=== PATIENT | male | born 1950 | race Caucasian/White ===

== ENCOUNTER → 2020-01-27 | Outpatient (CLI) | payer MEDICARE ==
--- NOTE | 2020-01-27 13:38 | KCIC ---
Examination: CT chest without contrast HISTORY: History of lung nodule COMPARISON: None available Technique: Axial CT images of chest were performed without contrast. Coronal and sagittal reformats are performed. Exposure: One or more of the following individualized dose reduction techniques were utilized for this examination: 1. Automated exposure control 2. Adjustment of the mA and/or kV according to patient size 3. Use of iterative reconstruction technique FINDINGS: The central airways are patent. Mild cardiomegaly. Coronary artery calcifications identified. No radiologically significant mediastinal lymphadenopathy identified. Groundglass nodules identified in the right upper lobe of the lung with the largest measuring 7.5 mm in the right upper lobe. Faint of ground glass infiltrates identified in the right upper lobe of the lung. 4 mm nodule identified in the right middle lobe of the lung. 3 mm nodule identified left lower lobe of the lung. Mild decreased attenuation noted in the liver probably hepatic steatosis. Cholecystectomy changes Mild degenerative changes thoracic spine. IMPRESSION: 1. Groundglass nodules the largest measuring 7.5 mm identified in the right upper lobe of the lung with infiltrates. Follow-up examination for for Society guidelines recommended in 3-6 months. 2. Smaller nodules scattered in the right and left lobes of the lung. 3. Mild hepatic steatosis Electronically signed by: Swapnil Mcmillan MD (01/27/2020 1:35 PM) [id number]
== END | disposition home or self-care (01) ==
LOC: KCIC CT 12:56
PROVIDERS: ATTEND Internal Medicine Pulmonary Disease
DX: R91.1 Solitary pulmonary nodule (principal); K76.0 Fatty (change of) liver, not elsewhere classified; I25.10 Atherosclerotic heart disease of native coronary artery without angina pectoris; I51.7 Cardiomegaly; Z90.49 Acquired absence of other specified parts of digestive tract
CPT/HCPCS: 71250

== ENCOUNTER → 2020-07-21 | Outpatient (CLI) | payer MEDICARE ==
--- NOTE | 2020-07-21 17:12 | KCIC ---
EXAM: CT Chest without IV contrast INDICATION: Reason: LUNG NODULE / Spl. Instructions: PREVIOUS CT CHEST 01/27/20 / History: TECHNIQUE: Multi-detector row CT images were acquired from the thoracic inlet through the upper abdo men without the use of IV contrast. Sagittal and coronal images were acquired from the transaxial deed a. All CT scans performed at this facility utilize dose optimization techniques as appropriate to the exam, including the following: Automated exposure control and adjustment of the mA and/or KV accordi ng to patient size (this includes techniques or standardized protocols for targeted exams where dose is indication/reason for exam). COMPARISON: CT chest without IV contrast of 01/27/2020 FINDINGS: The absence of IV contrast limits evaluation of soft tissue pathology. CARDIOVASCULAR: Unremarkable MEDIASTINUM & TARYN: No adenopathy or masses. LUNGS: Previously evident groundglass nodules in the right upper lobe have diminished in density but in the interval, additional groundglass opacities are present in the posterior right upper lobe and t o a lesser extent in the superior segment right lower lobe. PLEURAL SPACE: No pleural effusions or pneumothorax. OSSEOUS & SOFT TISSUE: Unremarkable ABDOMEN: Prior cholecystectomy. IMPRESSION: 6 month follow-up chest CT shows interval decrease in conspicuity and size of the previously noted gr oundglass nodules but new groundglass nodules in the posterior right upper lobe and superior segment right lower lobe in a pattern and distribution suggesting an inflammatory process. Recommend follow-u p with pulmonary medicine Electronically signed by: Zen Narayanan MD (07/21/2020 5:09 PM) [id number]
== END ==
LOC: KCIC CT 12:28
PROVIDERS: ATTEND Internal Medicine Pulmonary Disease
DX: R91.1 Solitary pulmonary nodule (principal); Z90.49 Acquired absence of other specified parts of digestive tract
CPT/HCPCS: 71250